=== PATIENT | female | born 1960 | race Hispanic/Latino ===

== ENCOUNTER 2017-01-21 19:35 | Observation (INO) | payer BC ==
[2017-01-21 19:35] VITALS: BMI 39.6
[2017-01-21 19:53] VITALS: BP 150/75; PULSE 69; RESP 16; TEMP 97; O2SAT 99
--- NOTE | 2017-01-21 20:37 | ED PDOC ---
HPI: Back Time Seen by Provider: 01/21/17 20:30 Chief Complaint (Nursing): Back Pain Chief Complaint (Provider): Back pain History Per: Patient History/Exam Limitations: no limitations Onset/Duration Of Symptoms: Days (yesterday) Current Symptoms Are (Timing): Still Present Additional Complaint(s): L flank pain going to L lower abd. Nausea, vomit x1. Dsyuria, increased freq urination. No fever, cough. Has had similar and was a kidney stones. See. Dr. Marquez. Past Medical History Reviewed: Nursing Documentation, Vital Signs Vital Signs: Last Vital Signs Temp 97.0 F L 01/21/17 19:49 Pulse 69 01/21/17 19:49 Resp 16 01/21/17 19:49 BP 150/75 01/21/17 19:49 Pulse Ox 99 01/21/17 19:49 - Medical History PMH: Diverticulitis, Kidney Stones Denies: HTN - Surgical History Surgical History: Cholecystectomy, Hernia Repair, Tonsillectomy Other surgeries: renal stones breaking - Family History Family History: States: Unknown Family Hx - Social History Current smoker - smoking cessation education provided: No Alcohol: None Drugs: Denies - Home Medications Home Medications: Ambulatory Orders Medication Instructions Recorded Multivit-Min/FA/Lycopen/Lutein 1 tab PO DAILY 01/16/16 [Centrum Silver Tablet] Clindamycin [Cleocin] 300 mg PO TID #30 cap 07/03/16 Compression Socks, Medium [Futuro 1 each MC DAILY #2 each 07/05/16 Restoring] Hydrocortisone [Cortizone 2.5% 20 applic TP BID #1 tube 07/05/16 CREAM] Prednisone 50 mg PO DAILY #5 tablet 07/13/16 - Allergies Allergies/Adverse Reactions: Allergies Allergy/AdvReac Type Severity Reaction Status Date / Time Penicillins Allergy RASH Verified 01/21/17 19:49 Sulfa (Sulfonamide Allergy RASH Verified 01/21/17 19:49 Antibiotics) Review of Systems ROS Statement: Except As Marked, All Systems Reviewed And Found Negative Gastrointestinal: Positive for: Nausea, Vomiting, Abdominal Pain Genitourinary Female: Positive for: Dysuria, Frequency Musculoskeletal: Positive for: Back Pain Physical Exam - Reviewed Nursing Documentation Reviewed: Yes Vital Signs Reviewed: Yes - Physical Exam Appears: Positive for: Non-toxic, No Acute Distress Head Exam: Positive for: ATRAUMATIC, NORMAL INSPECTION, NORMOCEPHALIC Skin: Positive for: Normal Color, Warm, DRY Eye Exam: Positive for: EOMI, Normal appearance, PERRL ENT: Positive for: Normal ENT Inspection Neck: Positive for: Normal, Painless ROM Cardiovascular/Chest: Positive for: Regular Rate, Rhythm Respiratory: Positive for: CNT, Normal Breath Sounds Gastrointestinal/Abdominal: Positive for: Bowel Sounds, Soft, Tenderness (LLQ) Back: Positive for: L CVA Tenderness. Negative for: R CVA Tenderness Extremity: Positive for: Normal ROM. Negative for: Tenderness, Pedal Edema Neurologic/Psych: Positive for: Alert, Oriented - Laboratory Results Result Diagrams: 01/21/17 21:03 01/21/17 21:40 Interpretation Of Abn Labs: urine wbc - ECG O2 Sat by Pulse Oximetry: 99 - CT Scan/US ct Other Rad Studies (CT/US): Read By Radiologist Other Rad Interpretation: no hydro or urolithiasis; has stones in kidney - Progress ED Course And Treament: 2333: No stones in ureter. Pt. has uti. Will rx cipro. Pt. to fu with pcp and urologist. AAOx3. Pain controlled. Tolerated PO. ED OBSERVATION Discharge: Yes Date of observation admission: 01/21/17 Time of observation admission: 20:48 - Observation admission statement Patient is being placed in observation because:: abd pain eval - Goals of Observation Goals of observation are:: pain control - Progress Note Progress Note: 01/21/17 23:34 dc Disposition - Clinical Impression Clinical Impression: Kidney stones, UTI (urinary tract infection) - Patient ED Disposition Is Patient to be Admitted: No Counseled Patient/Family Regarding: Studies Performed, Diagnosis, Need For Followup, Rx Given - Disposition Disposition: Routine/Home Disposition Time: 23:35 Condition: STABLE
[2017-01-21] MEDS ORDERED: Sodium Chloride 0.9% 1,000 ML IV STA (20:38)
[2017-01-21 21:07] LABS: BASO % 0.5 % (0.0-2.0); EOS # 0.1 K/uL (0.0-0.7); EOS % 1.4 % (0.0-4.0); HEMATOCRIT 40.6 % (34.0-47.0); LYMPH # 2.3 K/uL (1.0-4.3); LYMPH % 24.9 % (20.0-40.0); MEAN CELL VOLUME 83.9 fl (81.0-99.0); MEAN CORPUSCULAR HEMOGLOBIN 29.4 pg (27.0-31.0); MEAN CORPUSCULAR HGB CONC 35.1 g/dL (33.0-37.0); MEAN PLATELET VOLUME 8.2 fl (7.2-11.7); MONO # 0.5 K/uL (0.0-0.8); MONO % 5.5 % (0.0-10.0); NEUT # 6.1 K/uL (1.8-7.0); NEUT % 67.7 % (50.0-75.0); NRBC % 0.1 % (0.0-0.0); RED CELL DISTRIBUTION WIDTH 14.3 % (11.5-14.5); WHITE BLOOD COUNT 9.1 K/uL (4.8-10.8)
[2017-01-21 22:02] LABS: RBC URINE 3 /hpf (0-3); URINE BACTERIA FEW (<OCC); URINE BILIRUBIN NEGATIVE (NEGATIVE); URINE BLOOD NEGATIVE (NEGATIVE); URINE COLOR YELLOW (YELLOW); URINE GLUCOSE (UA) NEG (Normal); URINE KETONE NEGATIVE (NEGATIVE); URINE LEUKOCYTE ESTERASE MOD Leu/uL (Negative); URINE PROTEIN NEGATIVE (NEGATIVE); URINE UROBILINOGEN 0.2-1.0 mg/dL (0.2-1.0); WBC URINE 20 /hpf (0-5)
[2017-01-21 22:37] LABS: ALB/GLOB RATIO 1.3 (1.0-2.1); ALKALINE PHOSPHATASE 62 U/L (38-126); ALT/SGPT 43 U/L (9-52); AST/SGOT 36 U/L (14-36); BILIRUBIN,TOTAL 0.7 mg/dl (0.2-1.3); BLOOD UREA NITROGEN 12 mg/dl (7-17); CARBON DIOXIDE 25 mmol/L (22-30); CHLORIDE 105 mmol/L (98-107); GFR AFRICAN-AMERICAN > 60; GLUCOSE,RANDOM 91 mg/dL (65-105); POTASSIUM 3.8 MMOL/L (3.6-5.0); SODIUM 139 mmol/l (132-148); TOTAL PROTEIN 7.6 G/DL (6.3-8.2)
--- NOTE | 2017-01-22 08:43 | CT ---
PROCEDURE: CT Abdomen and Pelvis without intravenous contrast HISTORY: R/O stone COMPARISON: 01/16/2016. CT abdomen and pelvis. 05/22/2016 pelvic ultrasound TECHNIQUE: Unenhanced study. Neither oral nor intravenous contrast administered. Radiation dose: Total exam DLP = 915.52 mGy-cm. This CT exam was performed using one or more of the following dose reduction techniques: Automated exposure control, adjustment of the mA and/or kV according to patient size, and/or use of iterative reconstruction technique. FINDINGS: LOWER THORAX: Unremarkable. LIVER: Hepatic steatosis. No focal masses. No intrahepatic bile duct dilatation or perihepatic ascites. GALLBLADDER AND BILE DUCTS: Status post cholecystectomy. No abnormality is seen in the gallbladder fossa. PANCREAS: Unremarkable. No gross lesion or ductal dilatation. SPLEEN: Unremarkable. ADRENALS: Unremarkable. No mass. KIDNEYS AND URETERS: Nonobstructing calculi (2) left kidney. Neither exceeds 5.6 mm. Similar findings identified on the prior CT scan January 16, 2016. VASCULATURE: Unremarkable. No aortic aneurysm. BOWEL: Unremarkable. No obstruction. No gross mural thickening. APPENDIX: Unremarkable. Normal appendix. PERITONEUM: Unremarkable. No free fluid. No free air. LYMPH NODES: Unremarkable. No enlarged lymph nodes. BLADDER: Unremarkable. REPRODUCTIVE: Unremarkable. BONES: No acute fracture. OTHER FINDINGS: None. IMPRESSION: Stable nonobstructing left renal calculi.No acute findings related to/accounting for the clinical presentation. No significant interval change compared to the prior examination(s). Concordant results (preliminary interpretation) provided by [employer]. Procedure Completed: 22:54 Preliminary ([facility]Rad) Report: Dictated and Authenticated: 23:26 Final Interpretation: 08:42. January 22, 2017.
== END 2017-01-21 23:28 | disposition home or self-care (01) ==
LOC: H.ER 19:35 → H.EROBSV 20:37
PROVIDERS: ADMIT Emergency Medicine; ATTEND Emergency Medicine
DX: N20.0 Calculus of kidney (principal); N39.0 Urinary tract infection, site not specified; K57.92 Diverticulitis of intestine, part unspecified, without perforation or abscess without bleeding; R30.0 Dysuria; R11.2 Nausea with vomiting, unspecified; Z88.0 Allergy status to penicillin; Z88.2 Allergy status to sulfonamides; Z87.442 Personal history of urinary calculi
CPT/HCPCS: 36415; 74176; 80053; 81003; 85025; 87086; 96374; 99281; G0378; J1885; J2405; J7040

== ENCOUNTER 2017-05-20 10:16 | Emergency (ER) | payer BC ==
[2017-05-20 10:17] VITALS: BMI 39.6
[2017-05-20 10:38] VITALS: BP 162/49; RESP 18; TEMP 97; O2SAT 98
[2017-05-20] MEDS ORDERED: Sodium Chloride 0.9% 1,000 ML IV STA (11:08)
--- NOTE | 2017-05-20 11:18 | ED PDOC ---
HPI: Abdomen Time Seen by Provider: 05/20/17 10:20 Chief Complaint (Nursing): Abdominal Pain Chief Complaint (Provider): Adominal pain History Per: Patient History/Exam Limitations: no limitations Onset/Duration Of Symptoms: Days (x1) Current Symptoms Are (Timing): Still Present Location Of Pain/Discomfort: RLQ Quality Of Discomfort: "Pain" Associated Symptoms: Back Pain. denies: Fever, Chills, Vomiting, Diarrhea Exacerbating Factors: Movement Additional Complaint(s): Jayshree German is a 57 year old female, with a past medical history of kidney stones, chronic kidney disease, and diverticulitis, who presents to the emergency department complaining of a worsening right sided abdominal pain associated with nausea. Patient states the pain is worst with movement, radiates to the back and she also feels discomfort when she urinates. She saw her urologist in February, who told her she has a kidney stone but it is too small, and to have it examined by the end of May. She denies any fever, chills, vomiting, diarrhea or hematuria. No further medical complaints. PMD: Kendell Montaño Past Medical History Reviewed: Historical Data, Nursing Documentation, Vital Signs Vital Signs: Last Vital Signs Temp 97.0 F L 05/20/17 10:31 Pulse 66 05/20/17 13:49 Resp 18 05/20/17 10:31 BP 162/49 H 05/20/17 10:31 Pulse Ox 98 05/20/17 13:49 - Medical History PMH: Diverticulitis, Kidney Stones, Chronic Kidney Disease Denies: HTN - Surgical History Surgical History: Cholecystectomy, Hernia Repair, Tonsillectomy - Family History Family History: States: Unknown Family Hx - Social History Current smoker - smoking cessation education provided: No Alcohol: None Drugs: Denies - Home Medications Home Medications: Ambulatory Orders Medication Instructions Recorded Multivit-Min/FA/Lycopen/Lutein 1 tab PO DAILY 01/16/16 [Centrum Silver Tablet] Ibuprofen [Motrin] 600 mg PO TID 7 Days tab 01/21/17 - Allergies Allergies/Adverse Reactions: Allergies Allergy/AdvReac Type Severity Reaction Status Date / Time Penicillins Allergy RASH Verified 01/21/17 19:49 Sulfa (Sulfonamide Allergy RASH Verified 01/21/17 19:49 Antibiotics) Review of Systems ROS Statement: Except As Marked, All Systems Reviewed And Found Negative Constitutional: Negative for: Fever, Chills Gastrointestinal: Positive for: Nausea, Abdominal Pain (right sided, radiates to back). Negative for: Vomiting, Diarrhea Genitourinary Female: Positive for: Dysuria. Negative for: Hematuria Musculoskeletal: Positive for: Back Pain Physical Exam - Reviewed Nursing Documentation Reviewed: Yes Vital Signs Reviewed: Yes - Physical Exam Appears: Positive for: Non-toxic, No Acute Distress Head Exam: Positive for: ATRAUMATIC, NORMAL INSPECTION, NORMOCEPHALIC Skin: Positive for: Normal Color, Warm, Dry Eye Exam: Positive for: Normal appearance, EOMI, PERRL ENT: Positive for: Normal ENT Inspection Neck: Positive for: Normal, Painless ROM, Supple Cardiovascular/Chest: Positive for: Regular Rate, Rhythm. Negative for: Murmur Respiratory: Positive for: Normal Breath Sounds. Negative for: Respiratory Distress Gastrointestinal/Abdominal: Positive for: Normal Exam, Soft. Negative for: Tenderness Back: Positive for: R CVA Tenderness Extremity: Positive for: Normal ROM. Negative for: Deformity, Swelling Neurologic/Psych: Positive for: Alert, Oriented - Laboratory Results Result Diagrams: 05/20/17 12:25 05/20/17 12:25 - ECG ECG Rhythm: Positive for: Sinus Rhythm Interpretation Of Abn EKG: left axis deviation Rate: 66 O2 Sat by Pulse Oximetry: 98 (RA) Pulse Ox Interpretation: Normal Medical Decision Making Medical Decision Making: Initial impression: abdominal pain rule out stone Initial Plan: --Abd & Pelvis w/o PO or IV contrast [CT] --Comp Metabolic Panel --CBC w/ differential --Toradol 60 mg IM --Sodium Chloride 1,000 ml IV 999 mls/hr --Zofran Inj 4 mg IV --Urine C&S --Urinalysis --reevaluation 12:22 --Labs came back normal 12:38 Abd/Pelvis CT FINDINGS: LOWER THORAX: Unremarkable. LIVER: Hepatic steatosis. No focal masses. No intrahepatic bile duct dilatation or perihepatic ascites. GALLBLADDER AND BILE DUCTS: Status post cholecystectomy. No abnormality is seen in the gallbladder fossa. PANCREAS: Unremarkable. No gross lesion or ductal dilatation. SPLEEN: Unremarkable. ADRENALS: Unremarkable. No mass. KIDNEYS AND URETERS: Right kidney and right ureter: Unremarkable. Left kidney and ureter: Stable calculus disease. The largest calculus in the lower pole 5 mm. No evidence of hydronephrosis or hydroureter. VASCULATURE: Unremarkable. No aortic aneurysm. BOWEL: Diverticulosis without an acute inflammatory component or other associated pathologic process. APPENDIX: Unremarkable. Normal appendix. PERITONEUM: Unremarkable. No free fluid. No free air. LYMPH NODES: Unremarkable. No enlarged lymph nodes. BLADDER: Unremarkable. REPRODUCTIVE: Unremarkable. BONES: No acute fracture. OTHER FINDINGS: None. IMPRESSION: Stable nonobstructing left renal calculi. Negative study for hydronephrosis, hydroureter or bladder abnormality. Additional benign and/or incidental findings described above. pt aware of CT results. pt sleeping in bed in NAD> 13:48 --Upon provider evaluation patient is medically stable, and requires no further treatment in the ED at this time. Patient will be discharged home. Counseling was provided and all questions were answered regarding diagnosis and need for follow up with PMD. There is agreement to discharge plan. Return if symptoms persist or worsen. Scribe Attestation: Documented by Kishor Zamudio, acting as a scribe for Maddy Brunson MD Provider Scribe Attestation: All medical record entries made by the Scribe were at my direction and personally dictated by me. I have reviewed the chart and agree that the record accurately reflects my personal performance of the history, physical exam, medical decision making, and the department course for this patient. I have also personally directed, reviewed, and agree with the discharge instructions and disposition. Disposition - Clinical Impression Clinical Impression: Abdominal pain in female - Patient ED Disposition Is Patient to be Admitted: No Counseled Patient/Family Regarding: Studies Performed, Diagnosis, Need For Followup - Disposition Disposition: Routine/Home Disposition Time: 13:00 Condition: IMPROVED Additional Instructions: follow up with your primary doctor in 1-2 days return to the ED with any worsening or concerning symptoms Instructions: Abdominal Pain (ED) Forms: [employer] (Estonian)
[2017-05-20 11:59] LABS: SQUAMOUS EPITHIAL 5 /hpf (0-5); URINE BACTERIA RARE (<OCC); URINE BILIRUBIN NEGATIVE (NEGATIVE); URINE BLOOD NEGATIVE (NEGATIVE); URINE CLARITY CLOUDY (Clear); URINE COLOR YELLOW (YELLOW); URINE GLUCOSE (UA) NEG (Normal); URINE LEUKOCYTE ESTERASE TRACE Leu/uL (Negative); URINE NITRATE NEGATIVE (NEGATIVE); URINE PROTEIN NEGATIVE (NEGATIVE); URINE UROBILINOGEN 0.2-1.0 mg/dL (0.2-1.0)
[2017-05-20 12:23] VITALS: PULSE 66
[2017-05-20 12:32] LABS: BASO # 0.1 K/uL (0.0-0.2); BASO % 0.8 % (0.0-2.0); EOS # 0.1 K/uL (0.0-0.7); HEMOGLOBIN 13.5 g/dL (12.0-16.0); LYMPH # 2.4 K/uL (1.0-4.3); LYMPH % 29.7 % (20.0-40.0); MEAN CELL VOLUME 84.5 fl (81.0-99.0); MEAN CORPUSCULAR HEMOGLOBIN 29.4 pg (27.0-31.0); MEAN CORPUSCULAR HGB CONC 34.7 g/dL (33.0-37.0); MEAN PLATELET VOLUME 8.1 fl (7.2-11.7); MONO # 0.5 K/uL (0.0-0.8); MONO % 5.7 % (0.0-10.0); NEUT # 5.1 K/uL (1.8-7.0); NEUT % 62.8 % (50.0-75.0); NRBC % 0.1 % (0.0-0.0); RBC 4.59 Mil/uL (3.80-5.20); RED CELL DISTRIBUTION WIDTH 13.6 % (11.5-14.5); WHITE BLOOD COUNT 8.1 K/uL (4.8-10.8)
[2017-05-20 12:39] LABS: ALB/GLOB RATIO 1.1 (1.0-2.1); ALT/SGPT 42 U/L (9-52); AST/SGOT 23 U/L (14-36); BLOOD UREA NITROGEN 11 mg/dl (7-17); CALCIUM 9.5 mg/dL (8.4-10.2); GFR AFRICAN-AMERICAN > 60; GFR NON-AFRICAN AMERICAN > 60
--- NOTE | 2017-05-20 12:40 | CT ---
PROCEDURE: CT Abdomen and Pelvis without intravenous contrast HISTORY: Back and side abdominal pain COMPARISON: 01/21/2017 TECHNIQUE: Technique. Unenhanced study. Neither oral nor intravenous contrast administered. Radiation dose: Total exam DLP = 1003.01 mGy-cm. This CT exam was performed using one or more of the following dose reduction techniques: Automated exposure control, adjustment of the mA and/or kV according to patient size, and/or use of iterative reconstruction technique. FINDINGS: LOWER THORAX: Unremarkable. LIVER: Hepatic steatosis. No focal masses. No intrahepatic bile duct dilatation or perihepatic ascites. GALLBLADDER AND BILE DUCTS: Status post cholecystectomy. No abnormality is seen in the gallbladder fossa. PANCREAS: Unremarkable. No gross lesion or ductal dilatation. SPLEEN: Unremarkable. ADRENALS: Unremarkable. No mass. KIDNEYS AND URETERS: Right kidney and right ureter: Unremarkable. Left kidney and ureter: Stable calculus disease. The largest calculus in the lower pole 5 mm. No evidence of hydronephrosis or hydroureter. VASCULATURE: Unremarkable. No aortic aneurysm. BOWEL: Diverticulosis without an acute inflammatory component or other associated pathologic process. APPENDIX: Unremarkable. Normal appendix. PERITONEUM: Unremarkable. No free fluid. No free air. LYMPH NODES: Unremarkable. No enlarged lymph nodes. BLADDER: Unremarkable. REPRODUCTIVE: Unremarkable. BONES: No acute fracture. OTHER FINDINGS: None. IMPRESSION: Stable nonobstructing left renal calculi. Negative study for hydronephrosis, hydroureter or bladder abnormality. Additional benign and/or incidental findings described above.
== END 2017-05-20 14:11 | disposition home or self-care (01) ==
LOC: H.ER 10:16
DX: N20.0 Calculus of kidney (principal); Z88.0 Allergy status to penicillin
CPT/HCPCS: 74176; 80053; 81003; 85025; 87086; 96372; 99282; J1885; J2405; J7040

== ENCOUNTER 2017-06-10 16:38 | Emergency (ER) | payer BC ==
[2017-06-10 16:39] VITALS: BMI 39.6
[2017-06-10 17:06] VITALS: BP 172/61; PULSE 69; RESP 16; TEMP 98; O2SAT 97
[2017-06-10] MEDS ORDERED: Ciprofloxacin 0.3% OPTH SOLN OU STA (18:15)
--- NOTE | 2017-06-10 20:15 | ED PDOC ---
HPI: Eye Injury/Pain Time Seen by Provider: 06/10/17 17:23 Chief Complaint (Nursing): Eye Problem Chief Complaint (Provider): Eye problem History Per: Patient History/Exam Limitations: no limitations Onset/Duration Of Symptoms: Days (x1) Current Symptoms Are (Timing): Still Present Pain Scale Rating Of: 0 Wears Contact Lens?: Yes Associated Symptoms: Discharge From Eye. denies: Pain, Decreased Vision Additional Complaint(s): Jayshree German is a 57 year old female, with no significant past medical history, who presents to the emergency department complaining of bilateral eye redness with discharge onset since yesterday. Patient wears contact lenses. She denies any eye pain, decreased in vision, fever, or other injuries. No further medical complaints. PMD: Kendell Montaño Past Medical History Reviewed: Historical Data, Nursing Documentation, Vital Signs Vital Signs: Last Vital Signs Temp 98.0 F 06/10/17 17:03 Pulse 69 06/10/17 17:03 Resp 16 06/10/17 17:03 BP 172/61 H 06/10/17 17:03 Pulse Ox 97 06/10/17 17:03 - Medical History PMH: Diverticulitis, Kidney Stones, Chronic Kidney Disease Denies: HTN - Surgical History Surgical History: Cholecystectomy, Hernia Repair, Tonsillectomy - Family History Family History: States: Unknown Family Hx - Social History Current smoker - smoking cessation education provided: No Alcohol: None Drugs: Denies - Home Medications Home Medications: Ambulatory Orders Medication Instructions Recorded Multivit-Min/FA/Lycopen/Lutein 1 tab PO DAILY 01/16/16 [Centrum Silver Tablet] Ibuprofen [Motrin] 600 mg PO TID 7 Days tab 01/21/17 Ciprofloxacin 0.3% [Ciloxan 0.3% 1 drop EACHEYE QID #1 bottle 06/10/17 Ophth SOLN] - Allergies Allergies/Adverse Reactions: Allergies Allergy/AdvReac Type Severity Reaction Status Date / Time Penicillins Allergy RASH Verified 01/21/17 19:49 Sulfa (Sulfonamide Allergy RASH Verified 01/21/17 19:49 Antibiotics) Review of Systems ROS Statement: Except As Marked, All Systems Reviewed And Found Negative Constitutional: Negative for: Fever, Other (injuries) Eyes: Positive for: Redness (bilateral with discharge.). Negative for: Pain, Vision Change Physical Exam - Reviewed Nursing Documentation Reviewed: Yes Vital Signs Reviewed: Yes - Physical Exam Comments: GENERAL APPEARANCE: Patient is awake, alert, oriented x 3, in no acute distress. HEENT: (-) facial swelling and erythema, (-) facial blisters. LIDS & LASHES: Normal. PUPILS: Pupils equal and reactive. EOM's: Intact. LID EVERSION: (-) foreign body. CONJUNCTIVAE: + injection. ANTERIOR CHAMBER: (-) foreign body, (-) tear in iris, (-) hyphema. - ECG O2 Sat by Pulse Oximetry: 97 (RA) Pulse Ox Interpretation: Normal Medical Decision Making Medical Decision Making: Initial Impression: Conjunctivitis Initial Plan: --Ciloxan 0.3% Ophth SOLN 1 drop OU --reevaluation 18:30 Advised to follow up with an election clerk in 1-2 days without fail. Advised to take medication as prescribed. Instructed no contact lens wear. Return to the emergency room at any time for any new or worsening symptoms. Patient states she fully agrees with and understands discharge instructions. States that she agrees with the plan and disposition. Verbalized and repeated discharge instructions and plan. I have given the patient opportunity to ask any additional questions. ~ Scribe Attestation: Documented by Kishor Zamudio, acting as a scribe for Keeley Adams PA-C. Provider Scribe Attestation: All medical record entries made by the Scribe were at my direction and personally dictated by me. I have reviewed the chart and agree that the record accurately reflects my personal performance of the history, physical exam, medical decision making, and the department course for this patient. I have also personally directed, reviewed, and agree with the discharge instructions and disposition. Disposition - Clinical Impression Clinical Impression: Conjunctivitis - Patient ED Disposition Is Patient to be Admitted: No Counseled Patient/Family Regarding: Diagnosis, Need For Followup, Rx Given - Disposition Referrals: Sam Wyatt MD [Staff Provider] - Disposition: Routine/Home Disposition Time: 18:30 Condition: STABLE Additional Instructions: Thank you for letting us take care of you today. You were treated for conjunctivitis. The emergency medical care you received today was directed at your acute symptoms. If you were prescribed any medication, please fill it and take as directed. It may take several days for your symptoms to resolve. Return to the Emergency Department if your symptoms worsen, do not improve, or if you have any other problems. Please contact your eye doctor in 2 days for re-evaluation and follow up / or call one of the physicians/clinics you have been referred to that are listed on the Patient Visit Information form that is included in your discharge packet. Bring any paperwork you were given at discharge with you along with any medications you are taking to your follow up visit. Our treatment cannot replace ongoing medical care by a primary care provider (PCP) outside of the emergency department. Thank you for allowing the [facility] team to be part of your care today. Prescriptions: Ciprofloxacin 0.3% [Ciloxan 0.3% Ophth SOLN] 1 drop EACHEYE QID #1 bottle Instructions: Conjunctivitis (ED) Forms: [employer] (Vietnamese), [facility] ED School/Work Excuse - PA / [employer]ING TIER OFF / Resident Statement / has reviewed & agrees with the documentation as recorded.
== END 2017-06-10 18:46 | disposition home or self-care (01) ==
LOC: H.ER 16:38
DX: H10.9 Unspecified conjunctivitis (principal)

== ENCOUNTER 2017-06-23 16:00 | Emergency (ER) | payer BC ==
[2017-06-23 16:01] VITALS: BMI 39.6
[2017-06-23 16:58] VITALS: BP 172/91; PULSE 66; RESP 16; TEMP 98; O2SAT 98
--- NOTE | 2017-06-23 17:24 | ED PDOC ---
HPI: Eye Injury/Pain Time Seen by Provider: 06/23/17 17:02 Chief Complaint (Nursing): Eye Problem Chief Complaint (Provider): Left Eye Redness History Per: Patient History/Exam Limitations: no limitations Onset/Duration Of Symptoms: Days (x1) Current Symptoms Are (Timing): Still Present Additional Complaint(s): Jayshree German is a 57 year old female that presents to the ED with a chief complaint of left eye pain. Patient was seen here on 06/10/17 and was diagnosed with bilateral conjunctivitis, was given prescription for Cipro drops and reports that both eyes improved. Patient now reports development of redness, discharge and irritation to left eye that started yesterday. She denies fever, chills, or vision changes. Patient states this morning she noticed yellow discharge on eyelashes. Right eye is unaffected. Patient wears contact lenses but has not worn contacts since original infection was diagnosed 2 weeks ago. Past Medical History Reviewed: Historical Data, Nursing Documentation, Vital Signs Vital Signs: Last Vital Signs Temp 98.0 F 06/23/17 16:54 Pulse 66 06/23/17 16:54 Resp 16 06/23/17 16:54 BP 172/91 H 06/23/17 16:54 Pulse Ox 98 06/23/17 16:54 - Medical History PMH: Diverticulitis, Kidney Stones - Surgical History Surgical History: Cholecystectomy, Hernia Repair, Tonsillectomy - Family History Family History: States: No Known Family Hx - Living Arrangements Living Arrangements: With Family - Social History Current smoker - smoking cessation education provided: No Alcohol: None Drugs: Denies - Home Medications Home Medications: Ambulatory Orders Medication Instructions Recorded Multivit-Min/FA/Lycopen/Lutein 1 tab PO DAILY 01/16/16 [Centrum Silver Tablet] Ibuprofen [Motrin] 600 mg PO TID 7 Days tab 01/21/17 Ciprofloxacin 0.3% [Ciloxan 0.3% 1 drop EACHEYE QID #1 bottle 06/10/17 Ophth SOLN] Tobramycin [Tobrex] 5 ml TOP QID #1 bottle 06/23/17 - Allergies Allergies/Adverse Reactions: Allergies Allergy/AdvReac Type Severity Reaction Status Date / Time Penicillins Allergy RASH Verified 01/21/17 19:49 Sulfa (Sulfonamide Allergy RASH Verified 01/21/17 19:49 Antibiotics) Review of Systems ROS Statement: Except As Marked, All Systems Reviewed And Found Negative Constitutional: Negative for: Fever, Chills Eyes: Positive for: Redness (left eye). Negative for: Vision Change Neurological: Negative for: Headache, Dizziness Physical Exam - Reviewed Nursing Documentation Reviewed: Yes Vital Signs Reviewed: Yes - Physical Exam Appears: Positive for: Non-toxic, No Acute Distress Head Exam: Positive for: ATRAUMATIC, NORMOCEPHALIC Skin: Positive for: Normal Color, Warm Eye Exam: Positive for: EOMI, PERRL, Conjunctival injection (Diffuse conjunctival injection to the left eye, scant yellow discharge noted, no gross foreign body, no hyphema, no globe rupture, no periorbital swelling or erythema , right eye within normal limits). Negative for: Normal appearance ENT: Positive for: Normal ENT Inspection Neurologic/Psych: Positive for: Alert, Oriented. Negative for: Motor/Sensory Deficits - ECG O2 Sat by Pulse Oximetry: 98 (RA) Pulse Ox Interpretation: Normal Medical Decision Making Medical Decision Making: Impression: 57 year old female with left eye conjunctivitis Plan: * Patient will be given Rx for Tobramycin. Discussed the importance of follow up with dye range operator cloth and not to use contact lenses until cleared by dye range operator cloth to resume use. Patient is stable for discharge home. Scribe Attestation: Documented by Rubi Montana, acting as a scribe for Edna Torre PA-C. Provider Scribe Attestation: All medical record entries made by the Scribe were at my direction and personally dictated by me. I have reviewed the chart and agree that the record accurately reflects my personal performance of the history, physical exam, medical decision making, and the department course for this patient. I have also personally directed, reviewed, and agree with the discharge instructions and disposition. Disposition - Clinical Impression Clinical Impression: Conjunctivitis - Patient ED Disposition Is Patient to be Admitted: No Counseled Patient/Family Regarding: Diagnosis, Need For Followup, Rx Given - Disposition Referrals: Sam Wyatt MD [Staff Provider] - Disposition: Routine/Home Disposition Time: 17:31 Condition: STABLE Additional Instructions: Apply eyedrops as directed. Do not use contact lenses until cleared by dye range operator cloth to resume use. Follow up in 2-3 days with dye range operator cloth. Prescriptions: Tobramycin [Tobrex] 5 ml TOP QID #1 bottle Instructions: Conjunctivitis ([place]) (DC) Forms: [employer] ([place])
== END 2017-06-23 18:02 | disposition home or self-care (01) ==
LOC: H.ER 16:00
DX: H10.9 Unspecified conjunctivitis (principal); Z88.0 Allergy status to penicillin

== ENCOUNTER 2017-09-24 08:55 | Emergency (ER) | payer BC ==
[2017-09-24 08:59] VITALS: TEMP 97; O2SAT 97
[2017-09-24 09:00] VITALS: BMI 38.5
[2017-09-24] MEDS ORDERED: Iohexol 240 (50 ml) PO ONE (09:33)
[2017-09-24] MEDS ORDERED: Sodium Chloride 0.9% 1,000 ML IV STA (09:33)
--- NOTE | 2017-09-24 09:42 | ED PDOC ---
HPI: Abdomen Time Seen by Provider: 09/24/17 09:26 Chief Complaint (Nursing): Back Pain Chief Complaint (Provider): Abd pain History Per: Patient History/Exam Limitations: no limitations Onset/Duration Of Symptoms: Days () Additional Complaint(s): Pt. with abd pain and back pain. Dysuria and frequency of urination. Seen on and had an ultrasound ordered by pcp. Was put on cipro for uti. Here as symptoms still present. No vaginal bleeding or dc. No chest pain, dyspnea, vomit, diarrhea. PCP Dr. Montaño. Past Medical History Reviewed: Historical Data, Nursing Documentation, Vital Signs Vital Signs: Last Vital Signs Temp 97 F L 09/24/17 08:59 Pulse 62 09/24/17 08:59 Resp BP 164/81 H 09/24/17 08:59 Pulse Ox 97 09/24/17 14:29 - Medical History PMH: Diverticulitis, Kidney Stones, Chronic Kidney Disease Denies: HTN Other PMH: uti - Surgical History Surgical History: Cholecystectomy, Hernia Repair, Tonsillectomy - Family History Family History: States: Unknown Family Hx - Living Arrangements Living Arrangements: With Family - Social History Current smoker - smoking cessation education provided: No Alcohol: None Drugs: Denies - Home Medications Home Medications: Ambulatory Orders Medication Instructions Recorded Multivit-Min/FA/Lycopen/Lutein 1 tab PO DAILY 01/16/16 [Centrum Silver Tablet] Ibuprofen [Motrin] 600 mg PO TID 7 Days tab 01/21/17 Ciprofloxacin 0.3% [Ciloxan 0.3% 1 drop EACHEYE QID #1 bottle 06/10/17 Ophth SOLN] Tobramycin [Tobrex] 5 ml TOP QID #1 bottle 06/23/17 Famotidine [Pepcid] 20 mg PO DAILY PRN #6 tab 09/24/17 Ibuprofen [Motrin] 600 mg PO TID 7 Days tab 09/24/17 Nitrofurantoin Macrocrystals 100 mg PO BID #10 cap 09/24/17 [Macrobid] Phenazopyridine HCl [Pyridium] 100 mg PO BID PRN 5 Days tab 09/24/17 - Allergies Allergies/Adverse Reactions: Allergies Allergy/AdvReac Type Severity Reaction Status Date / Time Penicillins Allergy RASH Verified 01/21/17 19:49 Sulfa (Sulfonamide Allergy RASH Verified 01/21/17 19:49 Antibiotics) Review of Systems ROS Statement: Except As Marked, All Systems Reviewed And Found Negative Gastrointestinal: Positive for: Abdominal Pain Genitourinary Female: Positive for: Dysuria, Frequency Musculoskeletal: Positive for: Back Pain Physical Exam - Reviewed Nursing Documentation Reviewed: Yes Vital Signs Reviewed: Yes - Physical Exam Appears: Positive for: Non-toxic, No Acute Distress Head Exam: Positive for: ATRAUMATIC, NORMAL INSPECTION, NORMOCEPHALIC Skin: Positive for: Normal Color, Warm, DRY Eye Exam: Positive for: EOMI, Normal appearance, PERRL ENT: Positive for: Normal ENT Inspection Neck: Positive for: Normal, Painless ROM Cardiovascular/Chest: Positive for: Regular Rate, Rhythm Respiratory: Positive for: CNT, Normal Breath Sounds Gastrointestinal/Abdominal: Positive for: Soft, Tenderness (diffuse) Back: Positive for: Normal Inspection. Negative for: L CVA Tenderness, R CVA Tenderness Extremity: Positive for: Normal ROM. Negative for: Tenderness, Pedal Edema Neurologic/Psych: Positive for: Alert, Oriented - Laboratory Results Result Diagrams: 09/24/17 10:35 09/24/17 14:50 - ECG O2 Sat by Pulse Oximetry: 97 Pulse Ox Interpretation: Normal - Progress ED Course And Treament: 1400: Stable. AAOx3. Pain free. Tolerated PO. Has UTI. Will tx with macrobid. Pt. to stop current antibiotics. Disposition - Clinical Impression Clinical Impression: Abdominal pain, UTI (urinary tract infection) - Patient ED Disposition Is Patient to be Admitted: No Counseled Patient/Family Regarding: Studies Performed, Diagnosis, Need For Followup, Rx Given - Disposition Referrals: Kendell Montaño MD [Staff Provider] - 09/25/17 Disposition: Routine/Home Disposition Time: 14:01 Condition: STABLE Additional Instructions: Return if not better in 3 days. Prescriptions: Famotidine [Pepcid] 20 mg PO DAILY PRN #6 tab PRN Reason: Pain Ibuprofen [Motrin] 600 mg PO TID 7 Days tab Nitrofurantoin Macrocrystals [Macrobid] 100 mg PO BID #10 cap Phenazopyridine HCl [Pyridium] 100 mg PO BID PRN 5 Days tab PRN Reason: Bladder Spasm Instructions: Urinary Tract Infection, Adult (DC), Acute Abdomen (Belly Pain), Adult (DC)
[2017-09-24] MEDS ORDERED: Iohexol 240 (50 ml) ONE (10:08)
[2017-09-24 10:29] LABS: RENAL EPITHELIAL 2 /hpf (0-3); SQUAMOUS EPITHIAL 15 /hpf (0-5); URINE BACTERIA OCC (<OCC); URINE BILIRUBIN NEGATIVE (NEGATIVE); URINE BLOOD NEGATIVE (NEGATIVE); URINE CLARITY CLOUDY (Clear); URINE COLOR YELLOW (YELLOW); URINE GLUCOSE (UA) NEG (Normal); URINE LEUKOCYTE ESTERASE LARGE Leu/uL (Negative); URINE PROTEIN NEGATIVE (NEGATIVE); URINE UROBILINOGEN 0.2-1.0 mg/dL (0.2-1.0)
[2017-09-24 10:48] LABS: BASO % 0.5 % (0.0-2.0); EOS # 0.1 K/uL (0.0-0.7); EOS % 1.2 % (0.0-4.0); HEMOGLOBIN 14.3 g/dL (12.0-16.0); LYMPH # 2.2 K/uL (1.0-4.3); LYMPH % 24.8 % (20.0-40.0); MEAN CELL VOLUME 86.8 fl (81.0-99.0); MEAN CORPUSCULAR HEMOGLOBIN 29.4 pg (27.0-31.0); MEAN CORPUSCULAR HGB CONC 33.9 g/dL (33.0-37.0); MEAN PLATELET VOLUME 8.1 fl (7.2-11.7); MONO # 0.4 K/uL (0.0-0.8); MONO % 4.6 % (0.0-10.0); NEUT % 68.9 % (50.0-75.0); NRBC % 0.1 % (0.0-0.0); RBC 4.88 Mil/uL (3.80-5.20); RED CELL DISTRIBUTION WIDTH 14.3 % (11.5-14.5); WHITE BLOOD COUNT 8.8 K/uL (4.8-10.8)
[2017-09-24 10:51] LABS: ALBUMIN 4.2 g/dL (3.5-5.0); ALT/SGPT 40 U/L (9-52); AST/SGOT 49 U/L (14-36); BLOOD UREA NITROGEN 12 mg/dl (7-17); GFR AFRICAN-AMERICAN > 60; GFR NON-AFRICAN AMERICAN > 60; LIPASE 105 U/L (23-300)
[2017-09-24] MEDS ORDERED: Iohexol 300 100 ML IJ ONE (12:25)
[2017-09-24] MEDS ORDERED: Sodium Chloride 0.9% 50 ML IV ONE (12:25)
--- NOTE | 2017-09-24 13:39 | CT ---
PROCEDURE: CT Abdomen and Pelvis with contrast HISTORY: Lower back pain, abdominal pain. Duration of symptoms: Unknown. COMPARISON: 09/21/2017 abdominal ultrasound. 09/21/2017 pelvic ultrasound. 05/20/2017 CT abdomen and pelvis. TECHNIQUE: Contrast dose: 95 cc Omnipaque 300 Radiation dose: Total exam DLP = 1027.68 mGy-cm. This CT exam was performed using one or more of the following dose reduction techniques: Automated exposure control, adjustment of the mA and/or kV according to patient size, and/or use of iterative reconstruction technique. FINDINGS: LOWER THORAX: Unremarkable. LIVER: Hepatomegaly/hepatic steatosis without suspicious focal abnormality. Multiple hepatic cysts none larger than 1 cm. These appear more conspicuous on this contrast-enhanced study. The largest in the right hepatic lobe in retrospect was seen previously. GALLBLADDER AND BILE DUCTS: Status post cholecystectomy. No abnormality is seen in the gallbladder fossa. PANCREAS: Unremarkable. No gross lesion or ductal dilatation. SPLEEN: Unremarkable. ADRENALS: Unremarkable. No mass. KIDNEYS AND URETERS: Right kidney: Unremarkable right kidney in ureter. Left kidney in ureter: Mild fullness/ extrarenal pelvis. 6 mm calculus lower pole. Additional 2 mm lower pole collecting system which is nonobstructing. VASCULATURE: Unremarkable. No aortic aneurysm. BOWEL: Constipation without fecal impaction or obstruction. APPENDIX: No abnormalities to suggest acute appendicitis. No right lower quadrant inflammatory processes identified. Open luque PERITONEUM: Unremarkable. No free fluid. No free air. LYMPH NODES: Unremarkable. No enlarged lymph nodes. BLADDER: Unremarkable. REPRODUCTIVE: Punctate calcifications within the right adnexa likely benign. Otherwise unremarkable uterus and the left adnexa. BONES: No acute fracture. OTHER FINDINGS: None. IMPRESSION: No acute findings related to/accounting for the clinical presentation. Additional benign and/or incidental findings described above. Including nonobstructing calculi left kidney. No significant interval change compared to the prior examination(s).
[2017-09-24 16:17] VITALS: BP 150/80; PULSE 66; RESP 18
== END 2017-09-24 16:16 | disposition home or self-care (01) ==
LOC: H.ER 08:55
DX: K57.92 Diverticulitis of intestine, part unspecified, without perforation or abscess without bleeding (principal); N20.0 Calculus of kidney; N18.9 Chronic kidney disease, unspecified; Z87.442 Personal history of urinary calculi; Z88.0 Allergy status to penicillin
CPT/HCPCS: 74177; 80053; 81003; 83690; 84132; 85025; 87086; 96374; 99284; J1885; J7040; Q9966; Q9967

== ENCOUNTER 2017-11-14 07:08 | Emergency (ER) | payer BC ==
[2017-11-14 07:08] VITALS: BMI 38.5
[2017-11-14 07:31] VITALS: RESP 18; TEMP 98.2
[2017-11-14] MEDS ORDERED: Sodium Chloride 0.9% 1,000 ML IV STA (07:35)
--- NOTE | 2017-11-14 07:40 | ED PDOC ---
HPI: General Adult Time Seen by Provider: 11/14/17 07:10 Chief Complaint (Nursing): GI Problem Chief Complaint (Provider): nausea History Per: Patient History/Exam Limitations: no limitations Current Symptoms Are (Timing): Still Present Additional Complaint(s): Pt. had a 5mm stone broken up outpatient by Dr. Carreno yesterday. Had anesthesia for it. She then developed nasuea at home and has had it till know. Has mild pain on the left flank where she had the stone, but it is not that bad. Denies abd pain, weakness, chest pain, dizziness, headaches, dyspnea, dysuria, or other complaints. Past Medical History Reviewed: Nursing Documentation, Vital Signs Vital Signs: Last Vital Signs Temp 98.2 F 11/14/17 07:28 Pulse 65 11/14/17 07:28 Resp 18 11/14/17 07:28 BP 179/84 H 11/14/17 07:28 Pulse Ox 95 11/14/17 07:45 - Medical History PMH: Kidney Stones Denies: HTN - Surgical History Surgical History: Cholecystectomy, Hernia Repair, Tonsillectomy - Family History Family History: States: Unknown Family Hx - Home Medications Home Medications: Ambulatory Orders Medication Instructions Recorded Multivit-Min/FA/Lycopen/Lutein 1 tab PO DAILY 01/16/16 [Centrum Silver Tablet] Ibuprofen [Motrin] 600 mg PO TID 7 Days tab 01/21/17 Ciprofloxacin 0.3% [Ciloxan 0.3% 1 drop EACHEYE QID #1 bottle 06/10/17 Ophth SOLN] Tobramycin [Tobrex] 5 ml TOP QID #1 bottle 06/23/17 Famotidine [Pepcid] 20 mg PO DAILY PRN #6 tab 09/24/17 Ibuprofen [Motrin] 600 mg PO TID 7 Days tab 09/24/17 Nitrofurantoin Macrocrystals 100 mg PO BID #10 cap 09/24/17 [Macrobid] Phenazopyridine HCl [Pyridium] 100 mg PO BID PRN 5 Days tab 09/24/17 Ondansetron [Zofran] 4 mg PO Q8H PRN #6 tab 11/14/17 - Allergies Allergies/Adverse Reactions: Allergies Allergy/AdvReac Type Severity Reaction Status Date / Time Penicillins Allergy RASH Verified 11/14/17 07:28 Sulfa (Sulfonamide Allergy RASH Verified 11/14/17 07:28 Antibiotics) Review of Systems ROS Statement: Except As Marked, All Systems Reviewed And Found Negative Gastrointestinal: Positive for: Nausea Musculoskeletal: Positive for: Back Pain Physical Exam - Reviewed Nursing Documentation Reviewed: Yes Vital Signs Reviewed: Yes - Physical Exam Appears: Positive for: Non-toxic, No Acute Distress Head Exam: Positive for: ATRAUMATIC, NORMAL INSPECTION, NORMOCEPHALIC Skin: Positive for: Normal Color, Warm, DRY Eye Exam: Positive for: EOMI, Normal appearance, PERRL ENT: Positive for: Normal ENT Inspection Neck: Positive for: Normal, Painless ROM, Supple Cardiovascular/Chest: Positive for: Regular Rate, Rhythm Respiratory: Positive for: CNT, Normal Breath Sounds Gastrointestinal/Abdominal: Positive for: Normal Exam, Soft. Negative for: Tenderness Back: Positive for: L CVA Tenderness Extremity: Positive for: Normal ROM. Negative for: Tenderness, Pedal Edema Neurologic/Psych: Positive for: Alert, Oriented - Laboratory Results Result Diagrams: 11/14/17 08:01 11/14/17 08:01 Interpretation Of Abn Labs: no acute - ECG O2 Sat by Pulse Oximetry: 95 Pulse Ox Interpretation: Normal - Progress ED Course And Treament: 744: Spoke with Dr. Urias. States pt. doesn't need any imaging. Wants her to get zofran and dc. States it was only 1 small 5mm stone. Tolerated procedure well. 952: Feels much better. AAOx3. Pain free. Tolerated po. Fu with Dr. Urias tomorrow. Disposition - Clinical Impression Clinical Impression: Nausea, Back pain, HTN (hypertension) - Patient ED Disposition Is Patient to be Admitted: No Counseled Patient/Family Regarding: Studies Performed, Diagnosis, Need For Followup, Rx Given - Disposition Referrals: Melissa Urias MD [Medical Doctor] - 11/15/17 Disposition: Routine/Home Disposition Time: 09:54 Condition: STABLE Additional Instructions: Return if not better in 3 days. Prescriptions: Ondansetron [Zofran] 4 mg PO Q8H PRN #6 tab PRN Reason: Nausea/Vomiting Instructions: Nausea and Vomiting, Adult, High Blood Pressure in Adults Forms: [employer] (Ind[place]ian)
[2017-11-14 08:08] LABS: BASO % 0.4 % (0.0-2.0); EOS # 0.1 K/uL (0.0-0.7); EOS % 0.5 % (0.0-4.0); HEMOGLOBIN 13.8 g/dL (12.0-16.0); LYMPH # 1.5 K/uL (1.0-4.3); LYMPH % 13.8 % (20.0-40.0); MEAN CELL VOLUME 84.8 fl (81.0-99.0); MEAN CORPUSCULAR HEMOGLOBIN 30.3 pg (27.0-31.0); MEAN CORPUSCULAR HGB CONC 35.8 g/dL (33.0-37.0); MEAN PLATELET VOLUME 8.5 fl (7.2-11.7); MONO # 0.7 K/uL (0.0-0.8); MONO % 6.4 % (0.0-10.0); NEUT # 8.5 K/uL (1.8-7.0); NEUT % 78.9 % (50.0-75.0); NRBC % 0.1 % (0.0-0.0); RBC 4.56 Mil/uL (3.80-5.20); RED CELL DISTRIBUTION WIDTH 13.8 % (11.5-14.5); WHITE BLOOD COUNT 10.8 K/uL (4.8-10.8)
[2017-11-14 08:28] LABS: ALB/GLOB RATIO 1.2 (1.0-2.1); ALBUMIN 4.3 g/dL (3.5-5.0); ALT/SGPT 33 U/L (9-52); AST/SGOT 32 U/L (14-36); BLOOD UREA NITROGEN 11 mg/dl (7-17); CALCIUM 9.2 mg/dL (8.4-10.2); GFR AFRICAN-AMERICAN > 60; GFR NON-AFRICAN AMERICAN > 60
[2017-11-14 10:23] VITALS: BP 141/77; PULSE 88; O2SAT 97
--- NOTE | 2017-11-18 12:56 | CARD ---
APPROVED REPORT Date of service: 11/14/2017 EKG Measurement Heart [id number] <Conclusion> Sinus bradycardia Otherwise normal ECG
== END 2017-11-14 10:27 | disposition home or self-care (01) ==
LOC: H.ER 07:08
DX: R11.0 Nausea (principal); M54.9 Dorsalgia, unspecified; I10 Essential (primary) hypertension; Z88.0 Allergy status to penicillin
CPT/HCPCS: 80053; 84484; 85025; 93005; 96361; 96374; 96375; 99283; J1885; J2405; J7030

== ENCOUNTER 2017-11-29 19:19 | Emergency (ER) | payer BC ==
[2017-11-29 19:19] VITALS: BMI 38.5
[2017-11-29 19:26] VITALS: RESP 18; TEMP 98.2; O2SAT 100
[2017-11-29 20:47] LABS: BASO # 0.1 K/uL (0.0-0.2); BASO % 0.5 % (0.0-2.0); EOS # 0.3 K/uL (0.0-0.7); HEMOGLOBIN 13.5 g/dL (12.0-16.0); LYMPH # 2.4 K/uL (1.0-4.3); LYMPH % 21.1 % (20.0-40.0); MEAN CELL VOLUME 85.3 fl (81.0-99.0); MEAN CORPUSCULAR HEMOGLOBIN 28.8 pg (27.0-31.0); MEAN CORPUSCULAR HGB CONC 33.8 g/dL (33.0-37.0); MEAN PLATELET VOLUME 8.1 fl (7.2-11.7); MONO # 0.8 K/uL (0.0-0.8); MONO % 6.9 % (0.0-10.0); NEUT # 7.9 K/uL (1.8-7.0); NEUT % 68.5 % (50.0-75.0); NRBC % 0.1 % (0.0-0.0); RBC 4.67 Mil/uL (3.80-5.20); RED CELL DISTRIBUTION WIDTH 13.9 % (11.5-14.5); WHITE BLOOD COUNT 11.5 K/uL (4.8-10.8)
[2017-11-29 20:56] LABS: BLOOD UREA NITROGEN 17 mg/dl (7-17); CALCIUM 9.8 mg/dL (8.4-10.2); GFR NON-AFRICAN AMERICAN > 60
[2017-11-29 20:56] LABS: SQUAMOUS EPITHIAL 8 /hpf (0-5); URINE BACTERIA RARE (<OCC); URINE BILIRUBIN NEGATIVE (NEGATIVE); URINE BLOOD NEGATIVE (NEGATIVE); URINE CLARITY CLOUDY (Clear); URINE COLOR YELLOW (YELLOW); URINE GLUCOSE (UA) NEG (Normal); URINE LEUKOCYTE ESTERASE MOD Leu/uL (Negative); URINE PROTEIN NEGATIVE (NEGATIVE); URINE UROBILINOGEN 0.2-1.0 mg/dL (0.2-1.0)
--- NOTE | 2017-11-29 21:34 | ED PDOC ---
HPI: Back Time Seen by Provider: 11/29/17 19:49 Chief Complaint (Nursing): Female Genitourinary Chief Complaint (Provider): left sided flank pain History Per: Patient History/Exam Limitations: no limitations Onset/Duration Of Symptoms: Days (x2 weeks), Intermittent Episodes Current Symptoms Are (Timing): Still Present Additional Complaint(s): Jayshree German is a 57 year old female, with a past medical history of left kidney stones, who presents to the emergency department complaining of an intermittent left sided flank pain onset for x2 weeks. Patient states she had a lithotripsy done by Dr. Urias and since then shes had on and off pain. Patient thinks its just the stones passing and was seen by Dr. Urias who did an xray and advised her to come to ER. Patient denies any fever, chills, vomiting or hematuria. No further medical complaints. PMD: Kendell Montaño Past Medical History Reviewed: Historical Data, Nursing Documentation, Vital Signs Vital Signs: Last Vital Signs Temp 98.2 F 11/29/17 19:23 Pulse 70 11/29/17 19:23 Resp 18 11/29/17 19:23 BP 153/79 H 11/29/17 19:23 Pulse Ox 100 11/29/17 19:23 - Medical History PMH: Diverticulitis, Kidney Stones, Chronic Kidney Disease Denies: HTN - Surgical History Surgical History: Cholecystectomy, Hernia Repair, Tonsillectomy - Family History Family History: States: Unknown Family Hx - Home Medications Home Medications: Ambulatory Orders Medication Instructions Recorded Multivit-Min/FA/Lycopen/Lutein 1 tab PO DAILY 01/16/16 [Centrum Silver Tablet] Ibuprofen [Motrin] 600 mg PO TID 7 Days tab 01/21/17 Ciprofloxacin 0.3% [Ciloxan 0.3% 1 drop EACHEYE QID #1 bottle 06/10/17 Ophth SOLN] Tobramycin [Tobrex] 5 ml TOP QID #1 bottle 06/23/17 Famotidine [Pepcid] 20 mg PO DAILY PRN #6 tab 09/24/17 Ibuprofen [Motrin] 600 mg PO TID 7 Days tab 09/24/17 Nitrofurantoin Macrocrystals 100 mg PO BID #10 cap 09/24/17 [Macrobid] Phenazopyridine HCl [Pyridium] 100 mg PO BID PRN 5 Days tab 09/24/17 Ondansetron [Zofran] 4 mg PO Q8H PRN #6 tab 11/14/17 Ciprofloxacin HCl [Cipro] 500 mg PO BID #20 tablet 11/30/17 - Allergies Allergies/Adverse Reactions: Allergies Allergy/AdvReac Type Severity Reaction Status Date / Time Penicillins Allergy RASH Verified 11/14/17 07:28 Sulfa (Sulfonamide Allergy RASH Verified 11/14/17 07:28 Antibiotics) Review of Systems ROS Statement: Except As Marked, All Systems Reviewed And Found Negative Constitutional: Negative for: Fever, Chills Gastrointestinal: Negative for: Vomiting Genitourinary Female: Negative for: Hematuria Musculoskeletal: Positive for: Other (left flank pain) Physical Exam - Reviewed Nursing Documentation Reviewed: Yes Vital Signs Reviewed: Yes - Physical Exam Appears: Positive for: Non-toxic, No Acute Distress Head Exam: Positive for: ATRAUMATIC, NORMAL INSPECTION, NORMOCEPHALIC Skin: Positive for: Normal Color, Warm, Dry Eye Exam: Positive for: Normal appearance, EOMI, PERRL Neck: Positive for: Painless ROM Cardiovascular/Chest: Positive for: Regular Rate, Rhythm. Negative for: Murmur Respiratory: Positive for: Normal Breath Sounds. Negative for: Respiratory Distress Gastrointestinal/Abdominal: Positive for: Normal Exam, Soft. Negative for: Tenderness Back: Positive for: L CVA Tenderness Extremity: Positive for: Normal ROM (upper and lower extremities). Negative for : Deformity, Swelling Neurologic/Psych: Positive for: Alert, Oriented. Negative for: Motor/Sensory Deficits - Laboratory Results Result Diagrams: 11/29/17 20:42 11/29/17 20:42 - ECG O2 Sat by Pulse Oximetry: 100 (RA) Pulse Ox Interpretation: Normal Medical Decision Making Medical Decision Making: Time: 19:49 Initial Impression: left flank pain. Differential includes renal colic, nephrolithiasis, UTI Initial Plan: --Abdomen & Pelvis w/o PO or IV cont [CT] --BMP --Urine dipstick --CBC w/ differential --Toradol 30 mg IVP --Urinalysis --Reevaluation Time: 2359 --Lab and urine reviewed: consistent with UTI. Mildly elevated WBC but patient does not meet criteria for sepsis. Time: 003 --CT ABD/pelvis FINDINGS: Lower thorax: There are mild heterogeneous opacities in the lateral anterior left lung base, suggesting atelectasis/scarring or mild pneumonia. ABDOMEN: Liver: There is a 9 mm nodule in the hypodensity in the posterior right lobe of the liver, likely a cyst. Gallbladder and bile ducts: There is prior cholecystectomy. Pancreas: Normal. No ductal dilation. Spleen: Normal. No splenomegaly. Adrenals: Normal. No mass. Kidneys and ureters: The posterior left renal parenchyma is moderately thickened and mildly heterogeneous, suggesting focal nephritis, focal contusion, or a neoplasm. There are left small nonobstructing renal stones. No hydronephrosis or obstructing urinary stone. Stomach and bowel: The small bowel and the colon are difficult to evaluate secondary to lack of bowel contrast. There is no bowel dilatation to suggest obstruction. Appendix: The appendix is not visualized with certainty. There is no amalia pericecal inflammation or or pericecal fluid collection to suggest appendicitis. (Please note that acute appendicitis cannot be completely excluded without the visualization of a normal appendix). PELVIS: Bladder: Unremarkable as visualized. Reproductive: Unremarkable as visualized. ABDOMEN and PELVIS: Intraperitoneal space: No free air. No significant fluid collection. Vasculature: Normal. No abdominal aortic aneurysm. Lymph nodes: No enlarged lymph nodes. IMPRESSION: 1. The posterior left renal parenchyma is moderately thickened and mildly heterogeneous, suggesting focal nephritis, focal contusion, or a neoplasm. Recommend a contrast enhanced CT examination or MRI termination to further evaluate. 2. There are mild heterogeneous opacities in the lateral anterior left lung base , suggesting atelectasis/scarring or mild pneumonia. Time: 41 --Upon provider re-evaluation, patient is feeling better, medically stable and requires no further treatment in the ED at this time. Patient will be discharged home with Rx for cipro. Counseling was provided and all questions were answered regarding diagnosis and need for follow up with Dr. Montaño in 1- 2 days. There is agreement to discharge plan. Return if symptoms persist or worsen. Clinical Impression: ----- Scribe Attestation: Documented by Kishor Zamudio and Dali Navarrete, acting as scribes for Denny Rodrigues MD. Provider Scribe Attestation: All medical record entries made by the Scribe were at my direction and personally dictated by me. I have reviewed the chart and agree that the record accurately reflects my personal performance of the history, physical exam, medical decision making, and the department course for this patient. I have also personally directed, reviewed, and agree with the discharge instructions and disposition. Disposition - Clinical Impression Clinical Impression: UTI (urinary tract infection) - Patient ED Disposition Is Patient to be Admitted: No Doctor Will See Patient In The: Office Counseled Patient/Family Regarding: Studies Performed, Diagnosis, Need For Followup - Disposition Referrals: Melissa Urias MD [Medical Doctor] - Kendell Montaño MD [Family Provider] - Disposition: Routine/Home Disposition Time: 01:01 Condition: GOOD Additional Instructions: Take your medications as instructed. Follow up with your PCp in 2-3 days. Prescriptions: Ciprofloxacin HCl [Cipro] 500 mg PO BID #20 tablet Instructions: Urinary Tract Infection, Adult (DC)
[2017-11-30 00:54] VITALS: BP 149/73; PULSE 61
--- NOTE | 2017-11-30 10:21 | CT ---
Date of service: 11/29/2017 PROCEDURE: CT Abdomen and Pelvis without intravenous contrast HISTORY: left flank pain sp lythotrypsy COMPARISON: None. TECHNIQUE: Contiguous images were obtained from the domes of the diaphragms to the upper thighs without the administration of intravenous contrast. Oral contrast was not administered. Radiation dose: Total exam DLP = 709.7 mGy-cm. This CT exam was performed using one or more of the following dose reduction techniques: Automated exposure control, adjustment of the mA and/or kV according to patient size, and/or use of iterative reconstruction technique. FINDINGS: LOWER THORAX: Anterolateral left lower lobe scarring. LIVER: 1.2 cm right hepatic lobe cyst. No gross lesion or ductal dilatation. GALLBLADDER AND BILE DUCTS: Prior cholecystectomy with surgical clips in place. PANCREAS: Unremarkable. No gross lesion or ductal dilatation. SPLEEN: Unremarkable. ADRENALS: Unremarkable. No mass. KIDNEYS AND URETERS: Nonobstructive left lower pole sub centimeter calculi. Interval thickening of the mid/lower posterior kidney. No hydronephrosis. No solid mass. VASCULATURE: Unremarkable. No aortic aneurysm. BOWEL: Unremarkable. No obstruction. No gross mural thickening. APPENDIX: No findings to suggest acute appendicitis. PERITONEUM: Unremarkable. No free fluid. No free air. LYMPH NODES: Unremarkable. No enlarged lymph nodes. BLADDER: Unremarkable. REPRODUCTIVE: Small calcifications in the right adnexa, stable. BONES: No acute fracture. OTHER FINDINGS: None. IMPRESSION: New thickening of the mid/lower posterior kidney, likely representing interval development of a subcapsular hematoma. Renal ultrasound or contrast-enhanced cross-sectional study would better evaluate this area. ER notification submitted electronically.
== END 2017-11-30 01:07 | disposition home or self-care (01) ==
LOC: H.ER 19:19
DX: N39.0 Urinary tract infection, site not specified (principal); Z88.0 Allergy status to penicillin
CPT/HCPCS: 74176; 80048; 81003; 85025; 96374; 99284; J1885

== ENCOUNTER 2018-05-21 12:48 | Emergency (ER) | payer BC ==
[2018-05-21 12:48] VITALS: BMI 38.5
[2018-05-21 13:51] VITALS: BP 164/83; PULSE 75; RESP 16; TEMP 98.1; O2SAT 100
--- NOTE | 2018-05-21 13:58 | ED PDOC ---
HPI: General Adult Time Seen by Provider: 05/21/18 13:21 Chief Complaint (Nursing): Abnormal Skin Integrity Chief Complaint (Provider): Eczema History Per: Patient History/Exam Limitations: no limitations Onset/Duration Of Symptoms: Days Current Symptoms Are (Timing): Still Present Additional Complaint(s): Monserrat Martell is a 58 year old female with a past medical history of diverticulitis who is presenting to the ED for evaluation of itchy patches of skin to arms and shoulders onset several days ago. Patient states that she saw a billboard mechanic who prescribed her Triamcinolone acetonide for what he determined as eczema. She states reports that her last steroid injection was over a year ago and admits that her billboard mechanic is closed on Saturday so she presented to the ED. Patient offers no other medical complaints at this time. PMD: none provided Past Medical History Reviewed: Historical Data, Nursing Documentation, Vital Signs Vital Signs: Last Vital Signs Temp 98.1 F 05/21/18 13:49 Pulse 75 05/21/18 13:49 Resp 16 05/21/18 13:49 BP 164/83 H 05/21/18 13:49 Pulse Ox 100 05/21/18 13:49 - Medical History PMH: Diverticulitis, Kidney Stones, Chronic Kidney Disease Denies: HTN - Surgical History Surgical History: Cholecystectomy, Hernia Repair, Tonsillectomy - Family History Family History: States: Unknown Family Hx - Social History Current smoker - smoking cessation education provided: No Alcohol: None Drugs: Denies - Home Medications Home Medications: Ambulatory Orders Medication Instructions Recorded Multivit-Min/FA/Lycopen/Lutein 1 tab PO DAILY 01/16/16 [Centrum Silver Tablet] Ibuprofen [Motrin] 600 mg PO TID 7 Days tab 01/21/17 Ciprofloxacin 0.3% [Ciloxan 0.3% 1 drop EACHEYE QID #1 bottle 06/10/17 Ophth SOLN] Tobramycin [Tobrex] 5 ml TOP QID #1 bottle 06/23/17 Famotidine [Pepcid] 20 mg PO DAILY PRN #6 tab 09/24/17 Ibuprofen [Motrin] 600 mg PO TID 7 Days tab 09/24/17 Nitrofurantoin Macrocrystals 100 mg PO BID #10 cap 09/24/17 [Macrobid] Phenazopyridine HCl [Pyridium] 100 mg PO BID PRN 5 Days tab 09/24/17 Ondansetron [Zofran] 4 mg PO Q8H PRN #6 tab 11/14/17 Ciprofloxacin HCl [Cipro] 500 mg PO BID #20 tablet 11/30/17 Methylprednisolone [Medrol Dose 4 mg PO ASDIR #21 mg 05/21/18 Pack (21 tabs)] - Allergies Allergies/Adverse Reactions: Allergies Allergy/AdvReac Type Severity Reaction Status Date / Time Penicillins Allergy RASH Verified 11/14/17 07:28 Sulfa (Sulfonamide Allergy RASH Verified 11/14/17 07:28 Antibiotics) Review of Systems ROS Statement: Except As Marked, All Systems Reviewed And Found Negative Skin: Positive for: Other (eczema ) Physical Exam - Reviewed Nursing Documentation Reviewed: Yes Vital Signs Reviewed: Yes - Physical Exam Appears: Positive for: Well, Non-toxic, No Acute Distress Head Exam: Positive for: ATRAUMATIC, NORMAL INSPECTION, NORMOCEPHALIC Skin: Positive for: Warm, Dry, Rash (white dry pruritic outbreaks to dorsal side of bilateral upper arms and shoulders ) Eye Exam: Positive for: Normal appearance Cardiovascular/Chest: Positive for: Regular Rate, Rhythm. Negative for: Murmur Respiratory: Positive for: Normal Breath Sounds. Negative for: Respiratory Distress Extremity: Positive for: Normal ROM. Negative for: Deformity, Swelling Neurologic/Psych: Positive for: Alert, Oriented. Negative for: Motor/Sensory Deficits - ECG O2 Sat by Pulse Oximetry: 100 (RA) Pulse Ox Interpretation: Normal Medical Decision Making Medical Decision Making: Time: 13:51 Plan: --Decadron 10 mg IM Pt tolerated with good anti pruritic relief; pt is stable and safe for discharge and suggested to return to her treating billboard mechanic Pt rx medrol dose pack withinstructions to begin on Saturday Scribe Attestation: Documented by, Georgette Henson acting as a scribe for Doyle Samuel PA-C. Provider Scribe Attestation: All medical record entries made by the Scribe were at my direction and personally dictated by me. I have reviewed the chart and agree that the record accurately reflects my personal performance of the history, physical exam, medical decision making, and the department course for this patient. I have also personally directed, reviewed, and agree with the discharge instructions and disposition. Disposition - Clinical Impression Clinical Impression: Eczema - Patient ED Disposition Is Patient to be Admitted: No Doctor Will See Patient In The: Office Counseled Patient/Family Regarding: Diagnosis, Need For Followup, Rx Given - Disposition Referrals: Dashawn Martin MD [Staff Provider] - Disposition: Routine/Home Disposition Time: 14:56 Condition: STABLE Additional Instructions: follow up with your billboard mechanic do not begin the rx given here until Saturday (four days) Prescriptions: Methylprednisolone [Medrol Dose Pack (21 tabs)] 4 mg PO ASDIR #21 mg Forms: [employer] (Greenlandic)
== END 2018-05-21 15:25 | disposition home or self-care (01) ==
LOC: H.ER 12:48
DX: L30.9 Dermatitis, unspecified (principal)
CPT/HCPCS: 96372; 99282; J1100

== ENCOUNTER 2018-06-24 13:58 | Emergency (ER) | payer BC ==
[2018-06-24 13:58] VITALS: BMI 38.5
[2018-06-24 14:38] VITALS: RESP 18; TEMP 99; O2SAT 100
--- NOTE | 2018-06-24 16:12 | ED PDOC ---
HPI: Abdomen Time Seen by Provider: 06/24/18 15:44 Chief Complaint (Nursing): GI Problem Chief Complaint (Provider): Abdominal pain History Per: Patient History/Exam Limitations: no limitations Onset/Duration Of Symptoms: Days (2) Current Symptoms Are (Timing): Still Present Location Of Pain/Discomfort: Epigastric Quality Of Discomfort: "Pain" Associated Symptoms: Nausea, Vomiting, Diarrhea. denies: Fever Additional Complaint(s): 58 year old female presents to the ED for an evaluation of epigastric pain associated with nausea, vomiting and diarrhea onset for 2 days. Also reports of dysuria. Patient denies fever or blood in stool. PMD: none provided Past Medical History Reviewed: Historical Data, Nursing Documentation, Vital Signs Vital Signs: Last Vital Signs Temp 99.0 F 06/24/18 14:36 Pulse 72 06/24/18 14:36 Resp 18 06/24/18 14:36 BP 169/80 H 06/24/18 14:36 Pulse Ox 100 06/24/18 14:36 - Medical History PMH: Diverticulitis, Kidney Stones, Chronic Kidney Disease Denies: HTN - Surgical History Surgical History: Cholecystectomy, Hernia Repair, Tonsillectomy - Family History Family History: States: Unknown Family Hx - Home Medications Home Medications: Ambulatory Orders Medication Instructions Recorded Multivit-Min/FA/Lycopen/Lutein 1 tab PO DAILY 01/16/16 [Centrum Silver Tablet] Ibuprofen [Motrin] 600 mg PO TID 7 Days tab 01/21/17 Ciprofloxacin 0.3% [Ciloxan 0.3% 1 drop EACHEYE QID #1 bottle 06/10/17 Ophth SOLN] Tobramycin [Tobrex] 5 ml TOP QID #1 bottle 06/23/17 Famotidine [Pepcid] 20 mg PO DAILY PRN #6 tab 09/24/17 Ibuprofen [Motrin] 600 mg PO TID 7 Days tab 09/24/17 Nitrofurantoin Macrocrystals 100 mg PO BID #10 cap 09/24/17 [Macrobid] Phenazopyridine HCl [Pyridium] 100 mg PO BID PRN 5 Days tab 09/24/17 Ondansetron [Zofran] 4 mg PO Q8H PRN #6 tab 11/14/17 Ciprofloxacin HCl [Cipro] 500 mg PO BID #20 tablet 11/30/17 Methylprednisolone [Medrol Dose 4 mg PO ASDIR #21 mg 05/21/18 Pack (21 tabs)] Famotidine [Pepcid] 20 mg PO Q12 #20 tab 06/24/18 Ondansetron [Zofran] 4 mg PO Q8H #10 tab 06/24/18 - Allergies Allergies/Adverse Reactions: Allergies Allergy/AdvReac Type Severity Reaction Status Date / Time Penicillins Allergy RASH Verified 06/24/18 14:34 Sulfa (Sulfonamide Allergy RASH Verified 06/24/18 14:34 Antibiotics) Review of Systems ROS Statement: Except As Marked, All Systems Reviewed And Found Negative Constitutional: Negative for: Fever Gastrointestinal: Positive for: Nausea, Vomiting, Abdominal Pain, Diarrhea. Negative for: Other (blood in stool) Genitourinary Female: Positive for: Dysuria Physical Exam - Reviewed Nursing Documentation Reviewed: Yes Vital Signs Reviewed: Yes - Physical Exam Appears: Positive for: Well, Non-toxic, No Acute Distress Head Exam: Positive for: ATRAUMATIC, NORMAL INSPECTION, NORMOCEPHALIC Skin: Positive for: Normal Color, Warm, DRY Eye Exam: Positive for: EOMI, Normal appearance, PERRL ENT: Positive for: Normal ENT Inspection Neck: Positive for: Normal, Painless ROM Cardiovascular/Chest: Positive for: Regular Rate, Rhythm. Negative for: Murmur Respiratory: Positive for: Normal Breath Sounds. Negative for: Respiratory Distress Gastrointestinal/Abdominal: Positive for: Tenderness (epigastric) Back: Positive for: Normal Inspection. Negative for: L CVA Tenderness, R CVA Tenderness Extremity: Positive for: Normal ROM Neurologic/Psych: Positive for: Alert, Oriented (x3). Negative for: Motor/Sens ory Deficits - Laboratory Results Result Diagrams: 06/24/18 17:40 06/24/18 17:40 - ECG O2 Sat by Pulse Oximetry: 100 (RA) Pulse Ox Interpretation: Normal Medical Decision Making Medical Decision Making: Time: 1150 Impression: Abdominal pain r/o gastritis and UTI Plan: --CMP --ED urine dipstick --CBC w/ Differential --Normal saline 1000 mls/hr --Pepcid 20mg --Zofran inj 4mg --Urine culture --Reevaluation Scribe Attestation: Documented by Makr Rodrigues, acting as a scribe for Luis Velasquez MD. Provider Scribe Attestation: All medical record entries made by the Scribe were at my direction and personally dictated by me. I have reviewed the chart and agree that the record accurately reflects my personal performance of the history, physical exam, medical decision making, and the department course for this patient. I have also personally directed, reviewed, and agree with the discharge instructions and disposition. Disposition - Clinical Impression Clinical Impression: Gastroenteritis - Patient ED Disposition Is Patient to be Admitted: No Counseled Patient/Family Regarding: Studies Performed, Diagnosis, Need For Followup, Rx Given - Disposition Referrals: [facility] [Outside] Disposition: Routine/Home Disposition Time: 18:36 Condition: FAIR Prescriptions: Famotidine [Pepcid] 20 mg PO Q12 #20 tab Ondansetron [Zofran] 4 mg PO Q8H #10 tab Instructions: Viral Gastroenteritis Forms: [employer] (Finnish)
[2018-06-24] MEDS: Sodium Chloride 0.9% 1,000 ML IV STA (17:35)
[2018-06-24 17:53] LABS: ALB/GLOB RATIO 0.9 (1.0-2.1); ALBUMIN 3.7 g/dL (3.5-5.0); ALT/SGPT 35 U/L (9-52); AST/SGOT 47 U/L (14-36); BLOOD UREA NITROGEN 11 mg/dl (7-17); CALCIUM 8.7 mg/dL (8.4-10.2); GFR NON-AFRICAN AMERICAN > 60
[2018-06-24 17:55] LABS: BASO % 0.6 % (0.0-2.0); EOS # 0.1 K/uL (0.0-0.7); EOS % 1.1 % (0.0-4.0); HEMOGLOBIN 14.6 g/dL (12.0-16.0); LYMPH % 19.1 % (20.0-40.0); MEAN CORPUSCULAR HEMOGLOBIN 27.4 pg (27.0-31.0); MEAN PLATELET VOLUME 8.4 fl (7.2-11.7); MONO # 0.6 K/uL (0.0-0.8); MONO % 11.3 % (0.0-10.0); NEUT # 3.4 K/uL (1.8-7.0); NEUT % 67.9 % (50.0-75.0); NRBC % 0.1 % (0.0-0.0); RBC 5.34 Mil/uL (3.80-5.20); RED CELL DISTRIBUTION WIDTH 14.7 % (11.5-14.5)
[2018-06-24 19:28] VITALS: BP 154/82; PULSE 70
== END 2018-06-24 19:17 | disposition home or self-care (01) ==
LOC: H.ER 13:58
DX: K52.9 Noninfective gastroenteritis and colitis, unspecified (principal); N39.0 Urinary tract infection, site not specified; Z88.0 Allergy status to penicillin